=== PATIENT | male | born 1985 | race Caucasian/White ===

== ENCOUNTER → 2017-01-28 | Outpatient (CLI) | payer MEDICAID | LOC: BRMIMAGING 09:51 | PROVIDERS: ATTEND Internal Medicine | DX: M50.322 Other cervical disc degeneration at C5-C6 level (principal); M25.761 Osteophyte, right knee; M25.762 Osteophyte, left knee; M25.551 Pain in right hip; M25.552 Pain in left hip; M79.641 Pain in right hand; M79.642 Pain in left hand | CPT/HCPCS: 72050-PO; 73130-PO; 73562-PO ==